=== PATIENT | female | born 1995 | race Caucasian/White ===

== ENCOUNTER 2023-01-11 17:22 | Outpatient (CLI) | payer OTHER, SELFPAY ==
--- NOTE | ~2023-01-11 | US_ITS ---
EXAMINATION: US pelvic complete w TV DATE: 01/11/2023 18:52 INDICATION: Ovarian cyst follow-up Comparison:No prior studies for comparison. TECHNIQUE: Multiple transabdominal and endovaginal sonographic images of the pelvis performed. FINDINGS: The uterus measures 8.5 x 4.1 x 3.6 cm. The endometrial complex measures 5 mm. The right ovary measures 4.6 x 4.3 x 3.8 cm and the left ovary measures 3.3 x 2.2 x 1.9 cm. There is a right ovarian cyst measuring 4.3 cm. There are small follicles in each ovary. Normal doppler signal in both ovaries. There is free fluid in the pelvis. There are no abnormal masses seen on either side. IMPRESSION: 1. Right ovarian cyst measuring 4.3 cm. Reviewed, dictated and finalized at location L.
== END 2023-01-11 17:23 | disposition home or self-care (01) ==
LOC: CHSIMG 17:27
PROVIDERS: PCP Physician Assistant; Visit Provider Physician Assistant
DX: Z87.42 Personal history of other diseases of the female genital tract (principal); N83.201 Unspecified ovarian cyst, right side
CPT/HCPCS: 76830; 76856

== ENCOUNTER 2025-04-26 | Emergency (ER) | payer OTHER, SELFPAY ==
[2025-04-26] VITALS (14 sets, daily range): BP systolic 111–141; BP diastolic 63–82; PULSE 68–126; RESP 16–19; TEMP 36.2–37; O2SAT 95–99
--- OUTSIDE RECORDS SUMMARY | 2025-04-26 00:03 | XMS_ITS | Encounter Summary ---
Author Organization [facility] Address [address] [place] [id number] Care Team Providers Care Route Salesman Name Role Phone Garth Perez MD Primary Care Provider [phone] Luan Joshi Primary Care Provider [phone] Encounter Details Date Type Department Care Team (Late st Contact Info) Description 01/05/2019 Abstract SFL CONVERSION [address] [place] [address] , Generic ConversionMD Social History Tobacco Use Types Packs/Day Years Used Date Smoking Tobacco: Never Assessed Comments Unknown Sex and Gender Information Value Date Recorded Sex Assigned at Female 04/03/2025 9:13 PM CDT Legal Sex Female 8:50 PM CDT Gender Identity Not on file Sexual Orientation Not on file documented as of this encounter Plan of Treatment Not on file documented as of this encounter Visit Diagnoses Not on filedocumented in this encounter Care Teams Route Salesman Relationship Specialty Start Date End Date Garth Perez MD [address] [place] [address] PCP - General INTERNAL MEDICINE 04/25/19 08/04/22 Luan Joshi PA [address] [place] [id number] PCP - General PHYSICIAN AUTO PARKER 08/05/22 documented as of this encounter
--- NOTE | 2025-04-26 00:05 | ED_ITS ---
HPI - Overdose General Chief Complaint: Overdose Stated Complaint: intentional OD Time Seen by Provider: 04/26/25 00:04 Source: patient and EMS Mode of arrival: EMS Limitations: clinical condition (Somewhat intoxicated with alcohol) History of Present Illness HPI Narrative: Patient is a 29-year-old female with an overdose of Lexapro 10 mg tablets and she took 13 tablets this evening 30 minutes prior to arrival. The reason for this overdose was due to the fact that her current boyfriend was cheating and she just found out this evening. She is not suicidal at this time and not homicidal at this time. She is asymptomatic. She is teary. MD complaint: intentional overdose Onset (ago): minute(s) (Thirty) Timing confirmed by: other (EMS and patient) Substance Ingested Lexapro: Strength of Substance: 10 Number of Pills Ingested: 13 Total Dose: 130 Intent: wanted to escape How Overdose Was Discovered: called 911 Context: Intentional Overdose: relationship problems Associated symptoms: depression Treatments Prior to Arrival: none Related Data Allergies Allergy/AdvReac Type Severity Reaction Status Date / Time No Known Allergies Allergy Verified 04/26/25 00:48 Review of Systems 2 Review of Systems: All systems reviewed & are unremarkable except as noted in HPI and below Constitutional: Constitutional: Reports no additional constitutional complaints Eyes: Eyes: Reports no additional eye complaints ENT: Reports system reviewed and no additional complaints, except as documented Cardiovascular: Cardiovascular: Reports no additional cardiovascular complaints Respiratory: Respiratory: Reports no additional respiratory complaints Gastrointestinal: Gastrointestinal: Reports no additional gastrointestinal complaints Genitourinary: Genitourinary: Reports no additional female genitourinary complaints Musculoskeletal: Musculoskeletal: Reports no additional musculoskeletal complaints Integumentary/Breasts: Skin/Breast: Reports system reviewed and no additional complaints, except as docu Neurologic: Reports system reviewed and no additional complaints, except as documented Psychiatric: Psychiatric: Reports no additional psychiatric complaints Endocrine: Endocrine: Reports no additional endocrine complaints Hematologic/Lymphatic: Hematologic/Lymphatic: Reports no additional hematologic/lymphatic complaints Allergic/Immunologic: Allergic/Immunologic: Reports no additional allergic/immunologic complaints Exam 2 Const: General: healthy appearing Nutritional Appearance: well nourished Orientation/consciousness: patient oriented x3 Limitations: other limitations (Clinical condition and slightly intoxicated with alcohol) HENMT: Head: normal to inspection Ears: external ears normal F mabel/Nose/Sinus: Normal external nose present Eyes: Conjunctivae: conjunctivae normal Pupils: Equal, round and reactive pupils present EOM: EOMs intact bilaterally Neck: Neck: normal visual inspection Chest: Chest palpation & inspection: normal inspection of the chest Resp: Effort & Inspection: normal respiratory effort and not labored A uscultation: clear to auscultation bilaterally and no crackles Cardio: Rate: regular rate Rhythm: regular rhythm Heart sounds: no murmurs GI: Inspection: non-distended GI Palp: Yes Soft to palpation and No Tenderness to palpation present (GI) Auscultation: normal bowel sounds : General: Yes bladder normal to palpation Back/Spine/Pelvis: Back: no CVA tenderness Skin: General skin exam: normal color Rashes: no rashes Wounds: no wounds Neuro: General: patient oriented x3, moves all extremities and no meningeal signs Extrem: General: normal to inspection Psych: Mental Status: mental status grossly normal Affect: normal affect and Sad affect present Attitude: cooperative Other: No suicide or homicide ideation at this time Course Vital Signs Vital signs: Vital Signs Temperature 37.0 C 04/26/25 00:03 Pulse Rate 120 H 04/26/25 00:03 Respiratory Rate 19 04/26/25 00:03 Blood Pressure 141/82 H 04/26/25 00:03 Pulse Oximetry 97 04/26/25 00:03 Oxygen Delivery Room Air 04/26/25 00:03 Temperature 37.0 C 04/26/25 00:03 Pulse Rate 120 H 04/26/25 00:03 Respiratory Rate 19 04/26/25 00:03 Blood Pressure 141/82 H 04/26/25 00:03 Pulse Oximetry 97 04/26/25 00:03 Oxygen Delivery Room Air 04/26/25 00:03 MDM - Overdose MDM Narrative Medical decision making narrative: Patient is a 29-year-old female with a intentional overdose of Lexapro this evening. Poison control. Monitor for 8 hours. Labs. Lab Data Attestation: I reviewed the patient's lab results. 04/26/25 01:09 04/26/25 01:09 Labs: Lab Results 04/26/25 04/26/25 Range/Units 00:28 01:09 WBC 11.4 H (4.8-10.8) K/mm3 RBC 4.25 (4.20-5.40) M/mm3 Hgb 12.8 (12.0-15.0) g/dL Hct 38.8 (35.0-49.0) % MCV 91.3 (78.0-102.0) fL MCH 30.1 (27.0-31.0) pg MCHC 33.0 (32-36) g/dL RDW 13.4 (11.6-14.4) % Plt Count 308 (150-420) K/mm3 MPV 11.2 (9.2-11.8) fl Immature Gran % (Auto) 0.4 H (0.0-0.0) % Neut % (Auto) 88.5 H (50.0-70.0) % Lymph % (Auto) 7.9 L (18.0-42.0) % [place] % (Auto) 2.7 (2.0-11.0) % Eos % (Auto) 0.1 L (1.0-6.0) % Baso % (Auto) 0.4 (0.0-1.0) % Lymph # (Auto) 0.90 L (1.10-4.50) K/mm3 [place] # (Auto) 0.31 (0.10-0.90) K/mm3 Eos # (Auto) 0.01 L (0.02-0.50) K/mm3 Baso # (Auto) 0.04 (0.00-0.10) K/mm3 Abs Immat Gran (auto) 0.04 H (0.00-0.00) K/mm3 Absolute Neuts (auto) 10.06 H (1.70-7.20) K/mm3 Absolute Nucleated RBC 0.00 (0.00-0.00) K/mm3 Nucleated RBC % 0.0 (0-0.0) % Sodium 148 H (137-145) mmol/L Potassium 4.3 (3.4-5.0) mmol/L Chloride 116 H (98-107) mmol/L Carbon Dioxide 19 L (22-30) mmol/L Anion Gap 13 H (4-12) mmol/L BUN 9 (7-17) mg/dL Creatinine 0.90 (0.7-1.0) mg/dL Estim Creat Clear Calc Not Reportable Estimated GFR > 60 (59 - ) Glucose 116 H (65-110) mg/dL Calculated Osmolality 305 H (285-295) mOsm/kg Calcium 9.6 (8.4-10.2) mg/dL Total Bilirubin 0.4 (0.2-1.3) mg/dL AST 36 (14-36) U/L ALT 30 (6-35) U/L Alkaline Phosphatase 94 (38-126) U/L Total Creatine Kinase 247 H (30-135) U/L Total Protein 8.3 H (6.3-8.2) g/dL Albumin 4.6 (3.5-5.1) g/dL Urine Color Light yellow (Yellow) Urine Appearance Clear (Clear) Urine pH 5.5 (5.0-8.0) Ur Specific [place] 1.015 (1.010-1.020) Urine Protein Negative (Negative) Urine Glucose (UA) Negative (Negative) Urine Ketones Negative (Negative) Ur Blood (Man) Negative (Negative) Urine Nitrate Negative (Negative) Urine Bilirubin Negative (Negative) Urine Urobilinogen 0.2 (0.2-1.0) mg/dL Leukocyte Esterase Rfl Trace H (Negative) ASHLEY/UL Urine WBC 0-3 (0-3) /hpf Ur Squamous Epith Cells Few (Few) /hpf Amorphous Sediment Few H (None) Granular Casts 1-2 H (None) /lpf Urine Test Negative Salicylates < 1.0 L (2-20) mg/dL Urine Opiates Screen Negative (Negative) Urine Methadone Screen Negative (Negative) Acetaminophen < 10 L (10-30) ug/mL Ur Barbiturates Screen Negative (Negative) Ur Phencyclidine Scrn Negative (Negative) Ur Amphetamine Screen Negative (Negative) U Benzodiazepines Scrn Negative (Negative) Urine Cocaine Screen Negative (Negative) U Cannabinoids Screen Negative (Negative) Ethyl Alcohol 128 (<10) mg/dL ECG Data EKG #1: Attestation: I personally reviewed and interpreted this ECG as follows: ECG completion date: 04/26/25 ECG completion time: 00:43 EKG Interpretation: tachycardia, sinus rhythm, no ectopy, non-specific ST changes, normal QRS, normal QT and NL axis Discharge Plan Discharge Clinical Impression: Increased anion gap metabolic acidosis Drug overdose Qualifiers: Encounter type: initial encounter Injury intent: intentional self-harm Q ualified Code(s): T50.902A - Poisoning by unspecified drugs, medicaments and biological substances, intentional self-harm, initial encounter Patient Disposition: Acute Care Hospital Condition: Stable Patient Language: Comoran Follow-up/Referrals: Garth Perez MD [Primary Care Provider, Internal Medicine] Time of Disposition: 01:39
--- NOTE | 2025-04-26 00:09 | ECG_ITS ---
Test Date: 2025-04-26 06:16:42 Measurements Intervals [place] Rate: 63 P: 59 DE: 150 QRS: 50 QRSD: 90 T: 29 QT: 413 QTc: 426 Interpretive Statements SINUS RHYTHM No previous ECG available for comparison Electronically Signed On 04-27-2025 10:18:18 CDT by Denita Dave M.D.
--- NOTE | 2025-04-26 00:16 | PC.NURSE ---
Poison controlled notified at 0016hrs. Spoke with Fern. Poison control recommend continuos cardiac monitoring for 8 hour, repeat EKG before discharge, with QTC <450. Labs: Tylenol, aspirin, and alcohol, CBC & CMP. Urine drug screen. Case #[id number].
--- OUTSIDE RECORDS SUMMARY | 2025-04-26 00:29 | XMS_ITS | Encounter Summary ---
Author Organization [facility] Address [address] [place] [address] Care Team Providers Care Lean [employer] Black Belt Name Role Phone Garth Perez MD Primary Care Provider [phone] Luan Joshi Primary Care Provider [phone] Encounter Details Date Type Department Care Team (Late st Contact Info) Description 01/05/2019 Abstract SFL CONVERSION [address] [place] [address] , Generic ConversionMD Social History Tobacco Use [...] on filedocumented in this encounter Care Teams Lean [employer] Black Belt Relationship Specialty Start Date End Date Garth Perez MD [address] [place] [address] PCP - General INTERNAL MEDICINE 04/25/19 08/04/22 Luan Joshi PA [address] [place] [phone] PCP - General PHYSICIAN ART OBJECTS SUPERVISOR 08/05/22 documented as of this encounter
[2025-04-26 00:45] LABS: Add Urine Microscopic? YES; Appearance Urine Clear (Clear); Glucose Urine UA Negative (Negative); Leukocyte Esterase Ur Trace LEU/UL (Negative); Nitrate Urine Negative (Negative); Specific Grav Ur 1.015 (1.010-1.020)
--- NOTE | 2025-04-26 00:45 | PC.NURSE ---
Pt's mother and father at bedside.
[2025-04-26 00:52] LABS: Pregnancy On Board Control Positive
[2025-04-26] MEDS: SODIUM CHLORIDE 0.9% IV 1,000 ML 999 ML IV CONT (00:53)
[2025-04-26 01:11] LABS: Hematocrit 38.8 % (35.0-49.0); Hemoglobin 12.8 g/dL (12.0-15.0); Immature Granulocyte Percent A 0.4 % (0.0-0.0); Lymphocytes Absolute Auto 0.90 K/mm3 (1.10-4.50); Mean Corpuscular HGB Conc 33.0 g/dL (32-36); Mean Corpuscular Hemoglobin 30.1 pg (27.0-31.0); Mean Corpuscular Volume 91.3 fL (78.0-102.0); Nucleated Red Blood Cells Absolute Auto 0.00 K/mm3 (0.00-0.00); Nucleated Red Blood Cells Perc 0.0 % (0-0.0); Platelet Count Result 308 K/mm3 (150-420); Red Blood Count 4.25 M/mm3 (4.20-5.40); White Blood Count 11.4 K/mm3 (4.8-10.8)
[2025-04-26 01:15] LABS: Cannabinoid Screen Urine Negative (Negative)
[2025-04-26 01:24] LABS: Salicylate < 1.0 mg/dL (2-20)
[2025-04-26 01:27] LABS: Acetaminophen < 10 ug/mL (10-30)
[2025-04-26 01:28] LABS: Anion Gap 13 mmol/L (4-12); Blood Urea Nitrogen 9 mg/dL (7-17); Carbon Dioxide 19 mmol/L (22-30); Chloride 116 mmol/L (98-107); Potassium 4.3 mmol/L (3.4-5.0); Sodium 148 mmol/L (137-145)
[2025-04-26 01:29] LABS: Alanine Aminotransferase 30 U/L (6-35); Aspartate Amino Transferase 36 U/L (14-36); Bilirubin,Total 0.4 mg/dL (0.2-1.3); Calcium 9.6 mg/dL (8.4-10.2); Creatine Kinase 247 U/L (30-135); Estimated Glomerular Filt Rate > 60; Glucose 116 mg/dL (65-110); Osmolality Calculated 305 mOsm/kg (285-295); Total Protein 8.3 g/dL (6.3-8.2)
[2025-04-26 01:30] LABS: Albumin Level 4.6 g/dL (3.5-5.1); Alkaline Phosphatase 94 U/L (38-126)
--- NOTE | 2025-04-26 01:55 | PC.NURSE ---
Pt's mother and father leaving. Mother, Clementine: ; Father, Anjum: . Please call if pt's condition changes.
--- NOTE | 2025-04-26 05:15 | ED.GENADULT ---
HPI - General Adult General Chief complaint: Overdose Stated complaint: intentional OD Time Seen by Provider: 04/26/25 00:04 Source: patient and EMS Mode of arrival: EMS Limitations: clinical condition (Somewhat intoxicated with alcohol) Related Data Allergies Allergy/AdvReac Type Severity Reaction Status Date / Time No Known Allergies Allergy Verified 04/26/25 00:48 Course Vital Signs Vital signs: Vital Signs Pulse Rate 103 H 04/26/25 00:00 Respiratory Rate 19 04/26/25 00:00 Temperature 37.0 C 04/26/25 00:03 Pulse Rate 94 04/26/25 01:47 Respiratory Rate 16 04/26/25 01:47 Blood Pressure 123/70 04/26/25 01:47 Pulse Oximetry 98 04/26/25 01:47 Oxygen Delivery Room Air 04/26/25 00:03 Medical Decision Making Vital Signs Vital Signs: Vital Signs Pulse Rate 103 H 04/26/25 00:00 Respiratory Rate 19 04/26/25 00:00 Temperature 37.0 C 04/26/25 00:03 Pulse Rate 94 04/26/25 01:47 Respiratory Rate 16 04/26/25 01:47 Blood Pressure 123/70 04/26/25 01:47 Pulse Oximetry 98 04/26/25 01:47 Oxygen Delivery Room Air 04/26/25 00:03 Lab Data 04/26/25 01:09 04/26/25 01:09 Labs: Lab Results 04/26/25 04/26/25 Range/Units 00:28 01:09 WBC 11.4 H (4.8-10.8) K/mm3 RBC 4.25 (4.20-5.40) M/mm3 Hgb 12.8 (12.0-15.0) g/dL Hct 38.8 (35.0-49.0) % MCV 91.3 (78.0-102.0) fL MCH 30.1 (27.0-31.0) pg MCHC 33.0 (32-36) g/dL RDW 13.4 (11.6-14.4) % Plt Count 308 (150-420) K/mm3 MPV 11.2 (9.2-11.8) fl Immature Gran % (Auto) 0.4 H (0.0-0.0) % Neut % (Auto) 88.5 H (50.0-70.0) % Lymph % (Auto) 7.9 L (18.0-42.0) % [place] % (Auto) 2.7 (2.0-11.0) % Eos % (Auto) 0.1 L (1.0-6.0) % Baso % (Auto) 0.4 (0.0-1.0) % Lymph # (Auto) 0.90 L (1.10-4.50) K/mm3 [place] # (Auto) 0.31 (0.10-0.90) K/mm3 Eos # (Auto) 0.01 L (0.02-0.50) K/mm3 Baso # (Auto) 0.04 (0.00-0.10) K/mm3 Abs Immat Gran (auto) 0.04 H (0.00-0.00) K/mm3 Absolute Neuts (auto) 10.06 H (1.70-7.20) K/mm3 Absolute Nucleated RBC 0.00 (0.00-0.00) K/mm3 Nucleated RBC % 0.0 (0-0.0) % Sodium 148 H (137-145) mmol/L Potassium 4.3 (3.4-5.0) mmol/L Chloride 116 H (98-107) mmol/L Carbon Dioxide 19 L (22-30) mmol/L Anion Gap 13 H (4-12) mmol/L BUN 9 (7-17) mg/dL Creatinine 0.90 (0.7-1.0) mg/dL Estim Creat Clear Calc Not Reportable Estimated GFR > 60 (59 - ) Glucose 116 H (65-110) mg/dL Calculated Osmolality 305 H (285-295) mOsm/kg Calcium 9.6 (8.4-10.2) mg/dL Total Bilirubin 0.4 (0.2-1.3) mg/dL AST 36 (14-36) U/L ALT 30 (6-35) U/L Alkaline Phosphatase 94 (38-126) U/L Total Creatine Kinase 247 H (30-135) U/L Total Protein 8.3 H (6.3-8.2) g/dL Albumin 4.6 (3.5-5.1) g/dL Urine Color Light yellow (Yellow) Urine Appearance Clear (Clear) Urine pH 5.5 (5.0-8.0) Ur Specific [place] 1.015 (1.010-1.020) Urine Protein Negative (Negative) Urine Glucose (UA) Negative (Negative) Urine Ketones Negative (Negative) Ur Blood (Man) Negative (Negative) Urine Nitrate Negative (Negative) Urine Bilirubin Negative (Negative) Urine Urobilinogen 0.2 (0.2-1.0) mg/dL Leukocyte Esterase Rfl Trace H (Negative) ASHLYE/UL Urine WBC 0-3 (0-3) /hpf Ur Squamous Epith Cells Few (Few) /hpf Amorphous Sediment Few H (None) Granular Casts 1-2 H (None) /lpf Urine Test Negative Salicylates < 1.0 L (2-20) mg/dL Urine Opiates Screen Negative (Negative) Urine Methadone Screen Negative (Negative) Acetaminophen < 10 L (10-30) ug/mL Ur Barbiturates Screen Negative (Negative) Ur Phencyclidine Scrn Negative (Negative) Ur Amphetamine Screen Negative (Negative) U Benzodiazepines Scrn Negative (Negative) Urine Cocaine Screen Negative (Negative) U Cannabinoids Screen Negative (Negative) Ethyl Alcohol 128 (<10) mg/dL Discharge Plan Discharge Clinical Impression: Increased anion gap metabolic acidosis Drug overdose Qualifiers: Encounter type: initial encounter Injury intent: intentional self-harm Qualified Code(s): T50.902A - Poisoning by unspecified drugs, medicaments and biological substances, intentional self-harm, initial encounter Patient Disposition: Acute Care Hospital Condition: Stable Patient Language: Stateless Follow-up/Referrals: Garth Perez MD [Primary Care Provider, Internal Medicine] Time of Disposition: 01:39
--- NOTE | 2025-04-26 06:13 | ECG_ITS ---
Test Date: 2025-04-26 00:13:13 Measurements Intervals [place] Rate: 103 P: 53 HI: 172 QRS: 32 QRSD: 90 T: 26 QT: 332 QTc: 436 Interpretive Statements SINUS TACHYCARDIA POSSIBLE LEFT ATRIAL ENLARGEMENT [-0.1mV P-WAVE IN V1/V2] ABNORMAL RHYTHM ECG No previous ECG available for comparison Electronically Signed On 04-28-2025 07:30:52 CDT by Denita Dave M.D.
== END 2025-04-26 06:34 | disposition home or self-care (01) ==
PROVIDERS: Emergency Provider Emergency Medicine; PCP Internal Medicine
DX: T43.222A Poisoning by selective serotonin reuptake inhibitors, intentional self-harm, initial encounter (principal); E87.20 Acidosis, unspecified
CPT/HCPCS: 36415; 80053; 80143; 80179; 80307; 81001; 81025; 82077; 82550; 85025; 93005; 96360; 99284; J7030